=== PATIENT | female | born 1965 | race Caucasian/White ===

== ENCOUNTER → 2018-08-08 | Day surgery (SDC) | payer OTHER ==
[~2018-08-08] MED LIST: BACLOFEN20 MG PO; CATAFLAN PO; CLONAZEPAM1 MG PO; COZAAR25 MG PO; LIPITOR40 MG PO; LOPRESSOR25 MG PO; PEPCID40 MG PO; WELLBUTRIN XL300 MG PO
== END | disposition home or self-care (01) ==
LOC: ADM 08-01 12:30 → CIR.AMB 05:16
DX: M65.311 Trigger thumb, right thumb (principal); M67.843 Other specified disorders of tendon, right hand